=== PATIENT | male | born 2000 | race African-American/Black ===

== ENCOUNTER 2020-05-30 17:53 | Emergency (ER) | payer OTHER, SELFPAY ==
--- NOTE | 2020-05-30 18:30 | ER ---
Nurse's Notes [facility] Name: Saul Stephen Age: 19 yrs Sex: Male : 2000 Arrival Date: 05/30/2020 Time: 17:54 Bed 14 Private MD: Diagnosis: Avulsion of the right fourth distal phalanx Presentation: 05/30 18:03 Chief complaint: Right ring finger laceration from water slide 2 hrs [employer]. Bleeding hb controlled. Coronavirus screen: Proceed with normal triage. Ebola Screen: No symptoms or risks identified at this time. Initial Sepsis Screen: Does the patient meet any 2 criteria? No. Patient's initial sepsis screen is negative. Does the patient have a suspected source of infection? No. Patient's initial sepsis screen is negative. Risk Assessment: Do you want to hurt yourself or someone else? Patient reports no desire to harm self or others. Onset of symptoms was May 30, 2020. 18:03 Method Of Arrival: Ambulatory hb 18:03 Acuity: MONIE 4 hb Historical: - Allergies: 18:07 No Known Allergies; hb - Home Meds: 18:07 None [Active]; hb - PMHx: 18:07 None; hb - PSHx: 18:07 None; hb - Immunization history:: Adult Immunizations up to date. - Social history:: Smoking status: Patient denies any tobacco usage or history of. Screenin:17 Abuse screen: Denies threats or abuse. Denies injuries from another. Nutritional ca1 screening: No deficits noted. Tuberculosis screening: No symptoms or risk factors identified. Fall Risk None identified. Assessment: 18:17 General: Appears in no apparent distress. comfortable, Behavior is calm, cooperative, ca1 appropriate for age. Pain: Complains of pain in right ring finger and palmar aspect of distal phalanx of right ring finger Pain currently is 0 out of 10 on a pain scale. Neuro: Level of Consciousness is awake, alert, obeys commands, Oriented to person, place, time, situation. EENT: No signs and/or symptoms were reported regarding the EENT system. Derm: Skin is healthy with good turgor, Skin is pink, warm \T\ dry. Musculoskeletal: Circulation, motion, and sensation intact. Capillary refill < 3 seconds. Injury Description: Avulsion sustained to palmar aspect of distal phalanx of right ring finger is complete. 18:58 Reassessment: Patient appears in no apparent distress at this time. Patient is alert, ca1 oriented x 3, equal unlabored respirations, skin warm/dry/pink. Vital Signs: 18:03 BP 126 / 76; Pulse 62; Resp 16; Temp 98.3; Pulse Ox 100% ; Weight 68.04 kg; Height 6 hb ft. 1 in. (185.42 cm); Pain 3/10; 18:58 BP 119 / 72; Pulse 71; Resp 15 S; Pulse Ox 100% on R/A; ca1 18:03 Body Mass Index 19.79 (68.04 kg, 185.42 cm) ED Course: 17:54 Patient arrived in ED. ag5 18:07 Triage completed. 18:07 Shoaib Miller PA is PHCP. jessi 18:07 Stephen Victor MD is Attending Physician. [facility] 18:07 Arm band placed on. 18:12 Little Sheppard RN is Primary Nurse. ca1 18:17 Patient has correct armband on for positive identification. Bed in low position. Call ca1 light in reach. Side rails up X 1. Pulse ox on. NIBP on. 18:32 No provider procedures requiring assistance completed. Patient did not have IV access ca1 during this emergency room visit. Dressings: non-adherent dressing x 1 palmar aspect of distal phalanx of right ring finger 4X4s. Wound care: to laceration located on palmar aspect of distal phalanx of right ring finger was cleaned with Betadine, dressed with 4X4s, Patient tolerated well. Administered Medications: 18:26 Drug: Tetanus-Diphtheria Toxoid Adult 0.5 ml {Family Protection Specialist: [employer]. Exp: ca1 12/25/2022. Lot #: [id number]. } Route: IM; Site: right deltoid; 18:59 Follow up: Response: No adverse reaction ca1 Outcome: 18:29 Discharge ordered by . jessi 18:59 Discharged to home ambulatory. ca1 18:59 Condition: stable 18:59 Discharge instructions given to patient, Instructed on discharge instructions, follow up and referral plans. wound care, Demonstrated understanding of instructions, follow-up care, wound care. 18:59 Patient left the ED. ca1 Signatures: Shoaib Miller PA PA jmm Baxter, Heather, RN RN Little Sheppard, RN RN ca1 Kwaku, Sy ag5
--- NOTE | 2020-05-30 18:30 | EDPHYS ---
Physician Documentation [facility] Name: Saul Stephen Age: 19 yrs Sex: Male : 2000 Arrival Date: 05/30/2020 Time: 17:54 Bed 14 Private MD: ED Physician Stephen Victor HPI: 05/30 18:24 This 19 yrs old Black Male presents to ER via Ambulatory with complaints of Finger jmm Laceration. 18:24 The patient or guardian reports injury, pain. jmm 18:26 The complaints affect the palmar aspect of distal phalanx of right ring finger. Onset: jmm The symptoms/episode began/occurred acutely, just prior to arrival. Modifying factors: The symptoms are alleviated by nothing, the symptoms are aggravated by nothing. Associated signs and symptoms: Pertinent negatives: decreased sensation distally, fever, numbness distally, tingling distally, vomiting. The patient has not experienced similar symptoms in the past. Historical: - Allergies: 18:07 No Known Allergies; hb - Home Meds: 18:07 None [Active]; hb - PMHx: 18:07 None; hb - PSHx: 18:07 None; hb - Immunization history:: Adult Immunizations up to date. - Social history:: Smoking status: Patient denies any tobacco usage or history of. ROS: 18:26 Constitutional: Negative for fever, chills, and weight loss, Cardiovascular: Negative jmm for chest pain, palpitations, and edema, Respiratory: Negative for shortness of breath, cough, wheezing, and pleuritic chest pain. 18:26 MS/extremity: Positive for injury or acute deformity, laceration. 18:26 All other systems are negative. Exam: 18:26 Constitutional: This is a well developed, well nourished patient who is awake, alert, jmm and in no acute distress. Head/Face: atraumatic. Eyes: EOMI, no conjunctival erythema appreciated ENT: Moist Mucus Membranes Neck: Trachea midline, Supple Chest/axilla: Normal chest wall appearance and motion. Cardiovascular: Regular rate and rhythm. No edema appreciated Respiratory: Normal respirations, no respiratory distress appreciated Abdomen/GI: Non distended, soft Back: Normal ROM 18:26 Musculoskeletal/extremity: FROM appreciated to the right 4th phalanx, < 2 sec distal cap refill, compartments are soft, NVI. 18:26 Skin: avulsion noted to the right 4th distal phalanx. no active bleeding. 18:26 Neuro: Orientation: is normal, Mentation: is normal, Memory: is normal. 18:26 Psych: Behavior/mood is pleasant, cooperative. Vital Signs: 18:03 BP 126 / 76; Pulse 62; Resp 16; Temp 98.3; Pulse Ox 100% ; Weight 68.04 kg; Height 6 hb ft. 1 in. (185.42 cm); Pain 3/10; 18:58 BP 119 / 72; Pulse 71; Resp 15 S; Pulse Ox 100% on R/A; ca1 18:03 Body Mass Index 19.79 (68.04 kg, 185.42 cm) hb MDM: 18:11 Patient medically screened. [facility] 18:28 Data reviewed: vital signs, nurses notes. Counseling: I had a detailed discussion with jessi the patient and/or guardian regarding: the historical points, exam findings, and any diagnostic results supporting the discharge/admit diagnosis, the need for outpatient follow up, to return to the emergency department if symptoms worsen or persist or if there are any questions or concerns that arise at home. ED course: wound care given. patient is advised to follow up with pcp and otherwise given wound infeciton return precautions. patient understood and agrees with the plan of care. . Administered Medications: 18:26 Drug: Tetanus-Diphtheria Toxoid Adult 0.5 ml {Director Hematology: [employer]. Exp: ca1 12/25/2022. Lot #: [id number]. } Route: IM; Site: right deltoid; 18:59 Follow up: Response: No adverse reaction ca1 Disposition: 05/31 05:35 Co-signature as Attending Physician, Stephen Victor MD I agree with the assessment and [facility] plan of care. Disposition: 05/30/20 18:29 Discharged to Home. Impression: Avulsion of the right fourth distal phalanx. - Condition is Stable. - Discharge Instructions: Nonsutured Laceration Care, Deep Skin Avulsion. - Medication Reconciliation Form, Thank You Letter, Antibiotic Education, Prescription Opioid Use form. - Follow up: Private Physician; When: 2 - 3 days; Reason: Recheck today's complaints, Continuance of care, Re-evaluation by your physician. Signatures: Stephen Victor MD MD cha Mickail, Joel, PA PA jmm Baxter Sahra, RN RN Little Sheppard RN RN ca1 Corrections: (The following items were deleted from the chart) 05/30 18:59 18:29 05/30/2020 18:29 Discharged to Home. Impression: Avulsion of the right fourth ca1 distal phalanx. Condition is Stable. Forms are Medication Reconciliation Form, Thank You Letter, Antibiotic Education, Prescription Opioid Use. Follow up: Private Physician; When: 2 - 3 days; Reason: Recheck today's complaints, Continuance of care, Re-evaluation by your physician. jessi
[2020-05-30] MEDS ORDERED: TETANUS & DIPHTHERIA TOX,ADULT 0.5 ML VIAL ONE (18:36)
[2020-05-30 19:05] VITALS: TEMP 98.3; O2SAT 100
[2020-05-30 19:06] VITALS: BP 119/72
== END 2020-05-30 18:59 | disposition home or self-care (01) ==
LOC: ER 17:53
DX: S61.214A Laceration without foreign body of right ring finger without damage to nail, initial encounter (principal); Z23 Encounter for immunization
CPT/HCPCS: 90471; 90714; 99283

== ENCOUNTER 2020-08-11 00:23 | Emergency (ER) | payer SELFPAY ==
--- NOTE | 2020-08-11 00:58 | ER ---
Nurse's Notes [facility] Name: Saul Stephen Age: 19 yrs Sex: Male : 2000 Arrival Date: 08/11/2020 Time: 00:24 Bed 7 Private MD: Diagnosis: Dental abscess Presentation: 08/11 00:30 Chief complaint: Patient states: that he is having severe pain to left lower back fc tooth. Started yesterday. Coronavirus screen: Client denies travel out of the [place] in the last 14 days. Ebola Screen: Patient negative for fever greater than or equal to 101.5 degrees Fahrenheit, and additional compatible Ebola Virus Disease symptoms Patient denies exposure to infectious person. Patient denies travel to an Ebola-affected area in the 21 days before illness onset. No symptoms or risks identified at this time. Initial Sepsis Screen: Does the patient meet any 2 criteria? No. Patient's initial sepsis screen is negative. Does the patient have a suspected source of infection? No. Patient's initial sepsis screen is negative. Risk Assessment: Do you want to hurt yourself or someone else? Patient reports no desire to harm self or others. Onset of symptoms was August 10, 2020. Care prior to arrival: Medication(s) given: Motrin, at 1800 Tylenol, 1.5 tabs at 2330. 00:30 Method Of Arrival: Ambulatory fc 00:30 Acuity: MONIE 4 Triage Assessment: 01:11 EENT: Reports pain. rv Historical: - Allergies: 00:41 No Known Allergies; fc - Home Meds: 00:41 None [Active]; fc - PMHx: 00:41 None; fc - PSHx: 00:41 None; fc - Immunization history:: Last tetanus immunization: up to date Flu vaccine is not up to date. - Social history:: Smoking status: Reported history of juuling and/or vaping. Patient uses alcohol, occasionally. Screenin:30 Abuse screen: Denies threats or abuse. Nutritional screening: No deficits noted. Tuberculosis screening: No symptoms or risk factors identified. Fall Risk None identified. Assessment: 00:49 General: Appears in no apparent distress. comfortable, Behavior is calm, cooperative, jb4 appropriate for age. Pain: Complains of pain in mouth Pain does not radiate. Pain currently is 10 out of 10 on a pain scale. Neuro: Level of Consciousness is awake, alert, obeys commands, Oriented to person, place, time, situation. Cardiovascular: Patient's skin is warm and dry. Respiratory: Airway is patent Respiratory effort is even, unlabored, Respiratory pattern is regular, symmetrical. GI: No signs and/or symptoms were reported involving the gastrointestinal system. : No signs and/or symptoms were reported regarding the genitourinary system. EENT: Oral mucosa is moist. Derm: Skin is intact, Skin is dry, Skin is normal, Skin temperature is warm. Musculoskeletal: Circulation, motion, and sensation intact. Range of motion: intact in all extremities. Vital Signs: 00:30 BP 166 / 108; Pulse 61; Resp 18; Temp 97.9(O); Pulse Ox 100% on R/A; Weight 54.43 kg fc (R); Height 6 ft. 1 in. (185.42 cm) (R); Pain 10/10; 00:30 Body Mass Index 15.83 (54.43 kg, 185.42 cm) ED Course: 00:24 Patient arrived in ED. cf2 00:30 Arm band placed on Patient placed in an exam room, on a stretcher. fc 00:30 Patient has correct armband on for positive identification. Bed in low position. Call light in reach. Side rails up X 1. Pulse ox on. NIBP on. 00:30 No provider procedures requiring assistance completed. fc 00:35 Balaji Pizarro MD is Attending Physician. pkl 00:40 Triage completed. fc 00:42 Jose A Khoury, RN is Primary Nurse. jb4 01:11 Patient did not have IV access during this emergency room visit. rv Administered Medications: 01:03 Drug: Demerol 75 mg Route: IM; Site: right deltoid; rv 01:10 Follow up: Response: Medication administered at discharge. rv 01:03 Drug: Zofran (Ondansetron) 4 mg Route: PO; rv 01:10 Follow up: Response: Medication administered at discharge. rv 01:03 Drug: Clindamycin 300 mg Route: PO; rv 01:10 Follow up: Response: Medication administered at discharge. rv Outcome: 00:57 Discharge ordered by . pkl 01:11 Discharged to home ambulatory, with family. rv 01:11 Condition: good 01:11 Discharge instructions given to patient, Instructed on discharge instructions, follow up and referral plans. medication usage, Demonstrated understanding of instructions, follow-up care, medications, Prescriptions given X 2. 01:11 Patient left the ED. rv Signatures: Balaji Pizarro MD MD pkl Chretien, Felicia RN RN Jose A Sanchez RN RN jb4 Willie Lino RN RN Zack Ballard 2
--- NOTE | 2020-08-11 00:58 | EDPHYS ---
Physician Documentation [facility] Name: Saul Stephen Age: 19 yrs Sex: Male : 2000 Arrival Date: 08/11/2020 Time: 00:24 Bed 7 Private MD: ED Physician Balaji Pizarro HPI: 08/11 00:51 This 19 yrs old Black Male presents to ER via Ambulatory with complaints of Toothache. pkl 00:51 The patient presents with pain, swelling. Onset: The symptoms/episode began/occurred pkl yesterday. Associated signs and symptoms: The patient has no apparent associated signs or symptoms. Historical: - Allergies: 00:41 No Known Allergies; fc - Home Meds: 00:41 None [Active]; fc - PMHx: 00:41 None; fc - PSHx: 00:41 None; fc - Immunization history:: Last tetanus immunization: up to date Flu vaccine is not up to date. - Social history:: Smoking status: Reported history of juuling and/or vaping. Patient uses alcohol, occasionally. ROS: 00:51 Eyes: Negative for injury, pain, redness, and discharge. pkl 00:51 ENT: Positive for dental pain. 00:51 Neck: Negative for stiffness. 00:51 Cardiovascular: Negative for chest pain. 00:51 Respiratory: Negative for cough, shortness of breath. 00:51 Abdomen/GI: Negative for abdominal pain, nausea, vomiting, and diarrhea. 00:51 Back: Negative for acute changes. 00:51 : Negative for urinary symptoms. 00:51 MS/extremity: Negative for acute changes. 00:51 Skin: Negative for rash. 00:51 Neuro: Negative for altered mental status. Exam: 00:51 Head/Face: Normocephalic, atraumatic. Eyes: Pupils equal round and reactive to light, pkl extra-ocular motions intact. Lids and lashes normal. Conjunctiva and sclera are non-icteric and not injected. Cornea within normal limits. Periorbital areas with no swelling, redness, or edema. 00:51 ENT: Dental exam: abscess, that is mild, specifically in the lower left first molar (#19). 00:51 Neck: Exam negative for nuchal rigidity. 00:51 Chest/axilla: Exam negative for acute changes. 00:51 Cardiovascular: Rate: normal, Rhythm: regular. 00:51 Respiratory: the patient does not display signs of respiratory distress, Respirations: normal, Breath sounds: are clear throughout. 00:51 Abdomen/GI: Bowel sounds: normal, Palpation: abdomen is soft and non-tender. 00:51 Back: Exam negative for acute changes. 00:51 : Exam negative for acute changes. 00:51 Musculoskeletal/extremity: Exam is negative for acute changes. 00:51 Skin: Exam negative for rash. 00:51 Neuro: Orientation: is normal, Mentation: is normal, Cranial nerves: grossly normal, Motor: is normal. Vital Signs: 00:30 BP 166 / 108; Pulse 61; Resp 18; Temp 97.9(O); Pulse Ox 100% on R/A; Weight 54.43 kg fc (R); Height 6 ft. 1 in. (185.42 cm) (R); Pain 10/10; 00:30 Body Mass Index 15.83 (54.43 kg, 185.42 cm) MDM: 00:35 Patient medically screened. pkl 00:51 Data reviewed: vital signs, nurses notes. pkl Administered Medications: 01:03 Drug: Demerol 75 mg Route: IM; Site: right deltoid; rv 01:10 Follow up: Response: Medication administered at discharge. rv 01:03 Drug: Zofran (Ondansetron) 4 mg Route: PO; rv 01:10 Follow up: Response: Medication administered at discharge. rv 01:03 Drug: Clindamycin 300 mg Route: PO; rv 01:10 Follow up: Response: Medication administered at discharge. rv Disposition: 08/11/20 00:57 Discharged to Home. Impression: Dental abscess. - Condition is Stable. - Prescriptions for Clindamycin HCl 300 mg Oral Capsule - take 1 capsule by ORAL route every 6 hours for 7 days; 28 capsule. Ultram 50 mg Oral Tablet - take 1 tablet by ORAL route every 8 hours As needed; 12 tablet. - Medication Reconciliation Form, Thank You Letter, Antibiotic Education, Prescription Opioid Use form. - Follow up: Private Physician; When: 1 - 2 days; Reason: Re-evaluation by your physician. - Problem is new. - Symptoms are unchanged. Signatures: Balaji Pizarro MD MD pkl Sneha Godinez RN RN Holland, Willie, RN RN rv Corrections: (The following items were deleted from the chart) 01:11 00:57 08/11/2020 00:57 Discharged to Home. Impression: Dental abscess. Condition is rv Stable. Forms are Medication Reconciliation Form, Thank You Letter, Antibiotic Education, Prescription Opioid Use. Follow up: Private Physician; When: 1 - 2 days; Reason: Re-evaluation by your physician. Problem is new. Symptoms are unchanged. pkl
[2020-08-11] MEDS ORDERED: MEPERIDINE HCL 50 MG/ML ONE (01:07)
[2020-08-11] MEDS ORDERED: ONDANSETRON 4 MG (ODT) TAB ONE (01:07)
[2020-08-11 01:18] VITALS: BP 166/108; TEMP 97.9; O2SAT 100
== END 2020-08-11 01:11 | disposition home or self-care (01) ==
LOC: ER 00:23
DX: K04.7 Periapical abscess without sinus (principal); Z87.891 Personal history of nicotine dependence
CPT/HCPCS: 96372; 99283; J2175